=== PATIENT | male | born 1980 | race Caucasian/White ===

== ENCOUNTER 2016-09-12 15:48 | Emergency (ER) | payer OTHER ==
[~2016-09-12] VITALS: Ht 175.3 cm; Wt 41.0 kg
[2016-09-12 16:01] VITALS: BP 110/71; PULSE 94; RESP 16; TEMP 98.7; O2SAT 98
[2016-09-12 16:04] VITALS: BP 110/71; PULSE 86; RESP 16; O2SAT 99
--- NOTE | 2016-09-12 16:07 | PD ---
HPI Chief Complaint: Psychiatric Symptoms Time Seen by Provider: 16:05 Travel History International Travel<30 days: No Contact w/Intl Traveler<30days: No Traveled to known affect area: No History of Present Illness HPI Patient comes in with police escort under a Will act for suicidal ideations. Patient reports he is having thoughts of hurting himself but does not have a definitive plan. Patient states he feels unstable and needs help. Denies any homicidal ideations. Denies any medical complaints at this time. Denies any chest pain, shortness of breath, fevers, nausea, vomiting, or abdominal pain. PFS Past Medical History Medical History: Denies Significant Hx Social History Alcohol Use: No Tobacco Use: Yes Substance Use: No Allergies-Medications (Allergen,Severity, Reaction): Coded Allergies: No Known Allergies (Unverified , 09/12/16) Reported Meds & Prescriptions Reported Meds & Active Scripts Active No Active Prescriptions or Reported Medications Review of Systems Except as stated in HPI: all other systems reviewed are Neg Physical Exam Narrative GENERAL: Well-developed, under nourished, in no acute distress, and non-ill appearing. SKIN: Warm and dry. HEAD: Atraumatic. Normocephalic. EYES: Pupils equal and round. EOMI. No scleral icterus. No injection or drainage. ENT: No nasal bleeding or discharge. Mucous membranes pink and moist. NECK: Trachea midline. Supple. No nuclear rigidity. CARDIOVASCULAR: Regular rate and rhythm. No murmur appreciated. RESPIRATORY: No accessory muscle use. No respiratory distress. Clear to auscultation. Breath sounds equal bilaterally. MUSCULOSKELETAL: No obvious deformities. No clubbing. No cyanosis. No edema. Full range of motion. NEUROLOGICAL: Awake and alert. No obvious cranial nerve deficits. Motor grossly within normal limits. Normal speech. PSYCHIATRIC: Appropriate mood and affect. Data Data Last Documented VS Vital Signs Date Time Temp Pulse Resp B/P Pulse Ox O2 Delivery O2 Flow Rate FiO2 09/12/16 16:04 86 16 110/71 99 Room Air 09/12/16 16:01 98.7 Orders Complete Blood Count With Diff (09/12/16 15:59) Comprehensive Metabolic Panel (09/12/16 15:59) Drug Screen, Random Urine (09/12/16 15:59) Alcohol (Ethanol) (09/12/16 15:59) Salicylates (Aspirin) (09/12/16 15:59) Tylenol (Acetaminophen) (09/12/16 15:59) Psych Screen (09/12/16 15:59) Labs Laboratory Tests Test 09/12/16 16:15 White Blood Count 8.1 TH/MM3 Red Blood Count 5.25 MIL/MM3 Hemoglobin 16.0 GM/DL Hematocrit 45.4 % Mean Corpuscular Volume 86.5 FL Mean Corpuscular Hemoglobin 30.6 PG Mean Corpuscular Hemoglobin 35.4 % Concent Red Cell Distribution Width 12.5 % Platelet Count 147 TH/MM3 Mean Platelet Volume 10.1 FL Neutrophils (%) (Auto) 64.0 % Lymphocytes (%) (Auto) 28.2 % Monocytes (%) (Auto) 6.7 % Eosinophils (%) (Auto) 0.7 % Basophils (%) (Auto) 0.4 % Neutrophils # (Auto) 5.2 TH/MM3 Lymphocytes # (Auto) 2.3 TH/MM3 Monocytes # (Auto) 0.5 TH/MM3 Eosinophils # (Auto) 0.1 TH/MM3 Basophils # (Auto) 0.0 TH/MM3 CBC Comment DIFF FINAL Differential Comment Sodium Level 136 MEQ/L Potassium Level 4.3 MEQ/L Chloride Level 99 MEQ/L Carbon Dioxide Level 25.4 MEQ/L Anion Gap 12 MEQ/L Blood Urea Nitrogen 21 MG/DL Creatinine 1.35 MG/DL Estimat Glomerular Filtration 60 ML/MIN Rate Random Glucose 81 MG/DL Calcium Level 9.5 MG/DL Total Bilirubin 0.8 MG/DL Aspartate Amino Transf 16 U/L (AST/SGOT) Alanine Aminotransferase 28 U/L (ALT/SGPT) Alkaline Phosphatase 66 U/L Total Protein 8.1 GM/DL Albumin 4.7 GM/DL Salicylates Level 4.5 MG/DL Urine Opiates Screen NEG Acetaminophen Level LESS THAN 2.0 MCG/ML Urine Barbiturates Screen NEG Urine Amphetamines Screen NEG Urine Benzodiazepines Screen NEG Urine Cocaine Screen NEG Urine Cannabinoids Screen NEG Ethyl Alcohol Level LESS THAN 3 MG/DL MDM Medical Decision Making Medical Screen Exam Complete: Yes Emergency Medical Condition: Yes Differential Diagnosis Homicidal, suicidal, depression, drug induced mood disorder, nonspecific mood disorder, alcohol-induced mood disorder, other Narrative Course Patient was seen and examined. Labs were obtained and reviewed. Patient medically cleared for further treatment and evaluation by psych. Final disposition per psych. Diagnosis Primary Impression: Suicidal ideations Scripts No Active Prescriptions or Reported Meds Condition: Stable Ramos Beal Sep 12, 2016 16:07
[2016-09-12 16:28] LABS: AUTOMATED NEUTROPHIL # 5.2 TH/MM3 (1.8-7.7); BASOPHIL % 0.4 % (0.0-2.0); EOSINOPHIL # 0.1 TH/MM3 (0-0.4); EOSINOPHIL % 0.7 % (0.0-4.0); HEMATOCRIT 45.4 % (39.0-51.0); HEMO FLAGS DIFF FINAL; LYMPH % 28.2 % (9.0-44.0); LYMPHOCYTE # 2.3 TH/MM3 (1.0-4.8); MEAN CELL VOLUME 86.5 FL (80.0-100.0); MEAN CORPUSCULAR HEMOGLOBIN 30.6 PG (27.0-34.0); MEAN CORPUSCULAR HGB CONC 35.4 % (32.0-36.0); MONO % 6.7 % (0.0-8.0); PLATELET COUNT 147 TH/MM3 (150-450); RED BLOOD COUNT 5.25 MIL/MM3 (4.50-5.90); RED CELL DISTRIBUTION WIDTH 12.5 % (11.6-17.2); WHITE BLOOD COUNT 8.1 TH/MM3 (4.0-11.0)
[2016-09-12 16:41] LABS: AMPHETAMINE, URINE NEG (NEG); BARBITURATES, URINE NEG (NEG); COCAINE, URINE NEG (NEG)
[2016-09-12 16:49] LABS: ANION GAP 12 MEQ/L (5-15)
[2016-09-12 16:58] LABS: ALKALINE PHOSPHATASE 66 U/L (45-117); ALT (GPT) 28 U/L (12-78); AST (GOT) 16 U/L (15-37); BICARBONATE 25.4 MEQ/L (21.0-32.0); BLOOD UREA NITROGEN 21 MG/DL (7-18); CHLORIDE 99 MEQ/L (98-107); GLOMERULAR FILTRATION RATE 60 ML/MIN (>89); POTASSIUM 4.3 MEQ/L (3.5-5.1); SODIUM (NA) 136 MEQ/L (136-145); TOTAL BILIRUBIN ADULT 0.8 MG/DL (0.2-1.0)
[2016-09-12 16:59] LABS: ACETAMINOPHEN LESS THAN 2.0 MCG/ML (10.0-30.0)
[2016-09-12 18:34] VITALS: BP 107/73; PULSE 68; RESP 16; TEMP 97.4; O2SAT 98
[2016-09-12 22:00] VITALS: BP 101/61; PULSE 96; RESP 18; O2SAT 99
== END 2016-09-13 01:30 ==
LOC: NEPE 15:48 → NEPJ 09-13 01:30
DX: R45.851 Suicidal ideations (principal); Z72.0 Tobacco use
CPT/HCPCS: 80053; 80307; 80320; 80329; 85025; 99283; G0480